=== PATIENT | male | born 1960 | race Caucasian/White ===

== ENCOUNTER 2017-10-05 09:06 | Observation (INO) | payer OTHER ==
--- NOTE | 2017-10-05 09:27 | EDPHY ---
H & P Time Seen by Provider: 10/05/17 09:23 HPI/ROS: CHIEF COMPLAINT: Slurred speech, unstable gait HISTORY OF PRESENT ILLNESS: 57-year-old male with a history of depression presents with slurred speech and unstable gait. This morning, he awoke suddenly to take out the trash. He had an unstable gait and fell when coming back inside the house. His noticed that his speech was slow and slurred. The slurred speech has now resolved. However he continues to have an unsteady gait and is listing to the left. He does not feel dizzy and does not have a headache. No recent head or neck trauma. No prior similar symptoms. REVIEW OF SYSTEMS: complete 10 point ROS negative except at noted in the HPI Past Medical/Surgical History: Depression Anxiety Social History: Smoking Status: Never smoked Physical Exam: General Appearance: Alert, pleasant, speech is slow and clear Eyes: Pupils equal and round, no conjunctival pallor or injection, horizontal nystagmus ENT, Mouth: Mucous membranes moist Neck: Normal inspection Respiratory: Lungs are clear to auscultation Cardiovascular: Regular rate and rhythm Gastrointestinal: Abdomen is soft and nontender Neurological: Alert, oriented x3, cranial nerves 2-12 intact, motor 5/5, sensory intact to light touch, ataxic gait Skin: Warm and dry, no rash Extremities: Nontender, no pedal edema Psychiatric: Flat affect Constitutional: Initial Vital Signs Temperature (C) 36.7 C 10/05/17 09:20 Heart Rate 87 10/05/17 09:20 Respiratory Rate 16 10/05/17 09:20 Blood Pressure 126/79 H 10/05/17 09:20 O2 Sat (%) 94 10/05/17 09:20 O2 Delivery Mode Room Air Allergies/Adverse Reactions: shellfish derived Allergy (Verified 08/23/13 14:02) Home Medications: Medication Instructions Recorded DULoxetine [Cymbalta 60 MG (*)] 60 mg PO HS 10/05/17 Levothyroxine [Synthroid 150 mcg 150 mcg PO DAILY 10/05/17 (*)] Zolpidem Tartrate [Ambien 5MG (*)] 10 mg PO HS 10/05/17 buPROPion XL [Wellbutrin 150mg XL] 150 mg PO DAILY 10/05/17 Medical Decision Making - Diagnostics EKG Interpretation: EKG interpreted by me reveals normal sinus rhythm, rate 81, no ST or T segment changes. Interpretation: Normal EKG Imaging Results: CT head: NAD CTA head and neck: NAD Imaging: Discussed imaging studies w/ cabinet assembler Radiologist, I viewed and interpreted images myself ED Course/Re-evaluation: A stroke alert was called on patient arrival. I consulted Dr. Reagan at [facility]. If pt has a large vessel occlusion on CT-A, he would be a thrombectomy candidate. Otherwise, since he awoke with symptoms, he is not a tPA candidate. I discussed the iodine allergy with the patient. He has a shellfish allergy and was told that he should not have IV contrast. However he has not had a prior reaction to IV contrast. For this reason, ok to have IV contrast. Patient tolerated IV contrast well, without allergic reaction. Results discussed with the patient and his . Aspirin 325 mg orally given. He continues to have ataxia; neurologic exam unchanged. Concerning for CVA. Will admit for further evaluation. The hospitalist service was consulted for admission. Differential Diagnosis: Differential diagnosis includes though is not limited to cardiac dysrhythmia, CVA, TIA, GI bleed, sepsis, hypoglycemia. - Data Points Laboratory Results: Laboratory Results 10/05/17 09:15 10/05/17 09:15 Medications Given: Discontinued Medications Aspirin (Aspirin) 325 mg PO EDNOW ONE Stop: 10/05/17 10:19 Last Admin: 10/05/17 10:44 Dose: 325 mg Departure - Departure Disposition: [facility] Inpatient Acute Clinical Impression: Ataxia Condition: Fair
[2017-10-05 09:30] LABS: PLATELET COUNT 262 10^3/uL (150-400)
[2017-10-05 09:37] LABS: INR 0.92 (0.83-1.16); PROTIME(PATIENT) 12.6 SEC (12.0-15.0)
--- NOTE | 2017-10-05 09:38 | CPEKG ---
Heart Rate: 81 RR Interval: 741 P-R Interval: 168 QRSD Interval: 94 QT Interval: 368 QTC Interval: 428 P Greenwood: 32 QRS Greenwood: 1 T Wave Greenwood: 29 EKG Severity - NORMAL ECG - EKG Impression: SINUS RHYTHM Electronically Signed By: Jacqui Mendiola 05-Oct-2017 14:47:25
[2017-10-05] MEDS ORDERED: IOPAMIDOL (ISOVUE 370) 100 ML BTL IV ONE (09:44)
[2017-10-05] MEDS: ASPIRIN 81 MG CHEWABLE TAB PO ONE (10:44)
[2017-10-05] MEDS ORDERED: ACETAMINOPHEN 325 MG TAB PO PRN (13:51)
[2017-10-05] MEDS ORDERED: ONDANSETRON 4 MG/2 ML VIAL IVP PRN (13:51)
[2017-10-05] MEDS ORDERED: ONDANSETRON DISINTEGRATING 4 MG TAB PO PRN (13:51)
--- NOTE | 2017-10-05 14:16 | GHP ---
[f rep st] HISTORY AND PHYSICAL DATE OF ADMISSION: 10/05/2017 HISTORY: The patient is a pleasant 57-year-old gentleman with history of depression who presents to the hospital this morning with altered gait. He woke up this morning, he felt well when he went to b ed last night. He woke up with an altered gait. He felt like he might bump into something. His wif e saw him and noticed that he was not listing to one side. He sought care. Because symptoms were pre sent when he was awake, he was not a candidate for lytics. The patient denies palpitations. He has a family history of stroke in older people, but none younger . He has been told he has borderline cholesterol. Does not smoke or have diabetes. He denies intoxicant substances last night or this morning. He had no not numbness or weakness in his legs. Currently, he denies numbness or weakness or difficulty with speech. REVIEW OF SYSTEMS: Complete 10-point review of systems conducted, negative except as noted in the HP I. PAST MEDICAL HISTORY: Hypothyroidism and depression. SOCIAL HISTORY: No tobacco. Denies alcohol. He and his both note a lot of psychosocial stress ors. FAMILY HISTORY: Notable for a stroke in a grandmother. PHYSICAL EXAMINATION: VITAL SIGNS: Temp 36.7, blood pressure 122/85, pulse 71, breathing 15 times a minute, 94% on room air. GENERAL: No acute distress. HEENT: Sclerae anicteric. Oropharynx clear. Mucous membranes moist. NECK: Supple without lymphadenopathy or JVD. LUNGS: Clear to auscultati on bilaterally. HEART: S1, S2 without murmurs. ABDOMEN: Soft, nontender, nondistended. LOWER EXTR EMITIES: Without edema. Calves nontender. SKIN: Without rash. NEUROLOGIC: Shows cranial nerves 2-1 2 intact. H does have an asymmetric smile with a droopy left side, which his feels is at his ba seline. Upper extremity and lower extremity strength is 5/5 bilaterally. He has negative pronator d rift. Gait is normal. Speech is fluent with no dysarthria. LABORATORY: Sodium 143, potassium 4.3, chloride 104, bicarb 28, BUN 17, creatinine 1.0, glucose 131. Troponin less than 0.012. Coags normal. CBC normal. EKG, interpreted by me, shows sinus at 81 wi th normal axis and intervals, no ST or T-wave changes. Chest x-ray, interpreted by me, shows negativ e portable exam. Noncontrast head CT is unremarkable. Head CTA shows patent vessels in the head and neck. I discussed the case with Dr. Lauren Mendiola. ASSESSMENT/PLAN: A 57-year-old gentleman who presents with altered gait, concerning for possible hermelindo rovascular event. 1. Question stroke. The patient is not a candidate for lytics as outlined above. He will receive a stroke workup including telemetry, echocardiogram, lipid panel, and A1c. I also ordered an MRI to se e if stroke was actually happened. If there is a stroke, he is a candidate for outpatient cardiac mo nitoring given his active vascular disease and most at risk for an embolic stroke from atrial fibrill ation. Overall, I have a relatively low suspicion this represents a neurovascular event. 2. Hypothyroidism. We will check a TSH. 3. Depression. We will continue his medications. 4. Sleeplessness. Trazodone is new. He has been on Ambien for a fairly long period of time. I thi nk these medications could account for his symptoms that were seen. DISPOSITION: Observation status. /[id number]/MODL
--- NOTE | 2017-10-05 15:45 | ECHO ---
[email or web address] [address] [address] Main: [phone] Fax: Transthoracic Echocardiogram Name: GENEVA GUERRERO MR#: [id number] Study Date: 10/05/2017 Study Time: 02:09 PM Date of : 1960 Age: 57 year(s) Height: 175.3 cm (69 in.) Weight: 90.72 kg (200 lb.) BSA: 2.07 m2 Gender: Male Examination: Echo Indication: ischemic stroke w/o TPA Image Quality: Adequate Contrast: Requested by: Remy Portillo BP: 122 mmHg/85 mmHg Heart Rate: Rhythm: Normal sinus rhythm Indication: ischemic stroke w/o TPA Procedure Staff Link Trainer Maintenance Worker: Maria L Shine [facility] Reading Physician: Mervin Dennison MD Requesting Provider: Conclusions: Normal size left ventricle. EF is 73 %. The mitral valve is normal in appearance and function. Trivial mitral valve regurgitation. The aortic valve is tri-leaflet. Trivial to mild aortic valve regurgitation. No aortic valve stenosis is present. Pulmonary artery pressure is not obtained due to inadequate TR jet. Normal size ascending aorta measuring 3.5 cm. No old studies for comparison. Measurements: Chambers Valvular Assessment AV/MV Valvular Assessment TV/PV Normal Normal Normal Name Value Range Name Value Range Name Value Range Ao Reema (MM): 3.8 cm (2.2 cm-3.7 AV Vmax: 1.12 m/s (1 m/s-1.7 PV Vmax: 0.82 m/s (0.6 m/s-0.9 cm) m/s) m/s) IVSd (2D): 0.9 cm (0.6 cm-1.1 AV maxP mmHg ( - ) PV PGmax: 3 mmHg ( - ) cm) LVOT Vmax: 0.87 m/s (0.7 m/s-1.1 LVDd (2D): 4.5 cm (4.2 cm-5.9 m/s) cm) AR (PHT): 782 ms ( - ) LVDs (2D): 3.1 cm (2.1 cm-4 MV E Vmax: 0.56 m/s ( - ) cm) MV A Vmax: 0.48 m/s ( - ) LVPWd (2D): 0.7 cm (0.6 cm-1 MV E/A: 1.17 ( - ) cm) LVEF (BP): 73 % (>=55 %) RVDd(2D): 2.7 cm (1.9 cm-3.8 cmmm) Continued Measurements: Patient: GENEVA GUERRERO Study Date: 10/05/2017 Page 1 of 2 02:09 PM Chambers Valvular Assessment AV/MV Name Value Name Value LADs: 3.1 cm MV DecTime: 211 m/s LADs Lon.7 cm MV E' Septal: 0.09 m/s LA Area: 11.3 cm2 MV E/E' Septal: 6.40 LA Volume: 25 ml MV E/E' Lateral: 6.80 LA Volume Index: 12.1 ml/m2 AR Vmax: 3.81 cm/s TAPSE: 2.5 cm Additional Vessels Name Value Ao Ascendin.5 cm Findings: Left Ventricle: Normal size left ventricle. No LV hypertrophy. Normal global systolic LV function. EF is 73 %. No regional wall motion abnormality. Normal diastolic LV function. Right Ventricle: Normal size right ventricle. Normal RV function. Left Atrium: The left atrium is normal in size. Right Atrium: The right atrium is normal in size. Mitral Valve: The mitral valve is normal in appearance and function. Trivial mitral valve regurgitation. No mitral stenosis is present. Aortic Valve: The aortic valve is tri-leaflet. Trivial to mild aortic valve regurgitation. No aortic valve stenosis is present. Tricuspid Valve: The tricuspid valve is normal in appearance and function. There is no tricuspid valve regurgitation. Pulmonary artery pressure is not obtained due to inadequate TR jet. Pulmonic Valve: The pulmonic valve is normal in appearance and function. There is no pulmonic regurgitation seen. Aorta: The aorta is normal. Normal size aortic root measuring 3.8 cm. Normal size ascending aorta measuring 3.5 cm. IVC: The IVC is normal sized. Pericardium: No pericardial effusion. (No Signature Object) Patient: GENEVA GUERRERO Study Date: 10/05/2017 Page 2 of 2 02:09 PM [id number]
[2017-10-05 16:09] VITALS: BP 117/75
--- NOTE | 2017-10-05 16:22 | GCON ---
[f rep st] CONSULTATION REFERRING PHYSICIAN: Remy Portillo MD REASON FOR CONSULTATION: Dizziness and ataxia. 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 He had been on medication previously and within the last few weeks had been put on Wellbutrin, Cymbalta, and trazodone, all in quick succession. Trazodone was just started 10 days ago. He woke up this morning, and his balance was off and speech seemed slurred to his . He was brought under a stroke alert to the emergency department. Head CT was negative. CTA of the head and neck was done which showed widely patent vertebral and carotid arteries. CTA of the head showed normal intracranial circulation. Essentially, no acute findings on the CTA head and neck. The patient had symptoms for 3 hours and now they are spontaneously resolved. No other focal motor or sensory symptoms. No aphasia. Laboratories were fairly unremarkable. He is back to baseline and has no neurological complaints. REVIEW OF SYSTEMS: The 10-point review of systems was done and only pertinent to the HPI. He has been in normal sinus rhythm the whole time. PAST MEDICAL HISTORY: There is some hypothyroidism, along with the depression. Otherwise, please see Dr. Portillo's H and P for past medical history, social history, family history, home medications, allergies. PHYSICAL EXAMINATION: VITAL SIGNS: Temperature 36.7, blood pressure 122/85, pulse 71, breathing 15 times per minute, 94% on room air. GENERAL: In no acute distress. NEUROLOGIC: Higher mental function: Awake and alert. No aphasia. Cranial nerves: Normal 2 through 7, 11, and 12. Motor: Normal strength and tone throughout. Sensory: Normal to light touch. Coordination is normal throughout. Essentially normal neurologic exam. ASSESSMENT AND PLAN: 1. Dizziness and slurred speech, resolved. Overall, my impression is that he may have had an episode of toxic encephalopathy related to his recently added multiple psychotropic medications. Certainly, he may be at risk for a neurovascular event. I agree with an MRI brain and stroke workup (echo, lipids, inpatient rhythm monitoring). If the MRI shows an acute stroke, we will aggressively pursue an etiology including prolonged ECG monitoring. However, if MRI brain is negative, and there are no other significant cardiovascular abnormalities, then I think discharge home with discontinuation of trazodone would be reasonable. He should then follow up closely with his prescribing physician regarding management of his other psychotropic medications. I discussed this in great detail with the patient and along with Hospital Medicine. seventy total minutes floor time today reviewing records, imaging, direct counseling of the patient and coordination of care. The patient will likely discharge in the near future. Therefore, we will sign off and follow up as needed. Please do not hesitate to call if there are any further questions regarding any test results or changes in neurologic status. Thank you for the consultation. /[id number]/MODL MTDD
[2017-10-05] MEDS ORDERED: DULoxetine 60 MG CAP PO SCH (21:00)
[2017-10-05] MEDS ORDERED: ZOLPIDEM TARTRATE 5 MG TAB PO SCH (21:00)
[2017-10-06] MEDS ORDERED: LEVOTHYROXINE 150 MCG TAB PO SCH (06:00)
[2017-10-06] MEDS ORDERED: ASPIRIN 81 MG CHEWABLE TAB PO SCH (09:00)
[2017-10-06] MEDS ORDERED: buPROPion XL 150 MG TAB PO SCH (09:00)
== END 2017-10-05 18:11 | disposition home or self-care (01) ==
LOC: INTOOBSV 10:18 → F3N 11:15
PROVIDERS: ADMIT Internal Medicine; ATTEND Internal Medicine
DX: R47.81 Slurred speech (principal); R26.81 Unsteadiness on feet; H61.23 Impacted cerumen, bilateral; E03.9 Hypothyroidism, unspecified; F41.8 Other specified anxiety disorders; Z79.899 Other long term (current) drug therapy; Z82.3 Family history of stroke
CPT/HCPCS: 70450; 70496; 70498; 70551; 71045; 93005; 93306; G0378; 82947-QW; Q9967